=== PATIENT | female | born 2000 | race Two or more races ===

== ENCOUNTER 2021-04-21 21:21 | Emergency (ER) | payer OTHER ==
[~2021-04-21] VITALS: Ht 154.9 cm; Wt 69.9 kg
== END 2021-04-22 03:37 | disposition home or self-care (01) ==
LOC: ER 21:21 → EMR PED 21:21
DX: S00.83XA Contusion of other part of head, initial encounter (principal); S10.93XA Contusion of unspecified part of neck, initial encounter; S40.019A Contusion of unspecified shoulder, initial encounter; W18.2XXA Fall in (into) shower or empty bathtub, initial encounter; Y93.89 Activity, other specified; Y92.012 Bathroom of single-family (private) house as the place of occurrence of the external cause

== ENCOUNTER 2021-06-29 14:23 | Emergency (ER) | payer OTHER ==
[~2021-06-29] VITALS: Ht 157.5 cm; Wt 68.0 kg
[2021-06-29] MEDS ORDERED: TUSICOF CAPLET1 EACH PO (17:28)
[2021-06-29] MEDS ORDERED: ALBUTEROL2.5 MG/3 M IH (17:28)
[2021-06-29] MEDS ORDERED: MEDROL8 MG PO (17:28)
[2021-06-29] MEDS ORDERED: ZITHROMAX500 MG PO (17:28)
== END 2021-06-29 18:20 | disposition home or self-care (01) ==
LOC: EMR PED 14:23
DX: J06.9 Acute upper respiratory infection, unspecified (principal); B96.0 Mycoplasma pneumoniae [M. pneumoniae] as the cause of diseases classified elsewhere; Z20.822 Contact with and (suspected) exposure to COVID-19

== ENCOUNTER 2021-07-20 00:52 | Emergency (ER) | payer OTHER ==
[~2021-07-20] VITALS: Ht 154.9 cm; Wt 68.0 kg
[~2021-07-20 00:52] MED LIST: ALBUTEROL2.5 MG/3 M IH; MEDROL8 MG PO; TUSICOF CAPLET1 EACH PO; ZITHROMAX500 MG PO
== END 2021-07-20 03:20 | disposition home or self-care (01) ==
LOC: ER 00:52
DX: J06.9 Acute upper respiratory infection, unspecified (principal); Z03.818 Encounter for observation for suspected exposure to other biological agents ruled out